=== PATIENT | female | born 1960 | race Caucasian/White ===

== ENCOUNTER 2016-07-06 16:49 | Emergency (ER) | payer MEDICAID ==
[~2016-07-06] VITALS: Ht 165.1 cm; Wt 65.9 kg
[2016-07-06] MEDS ORDERED: LIDOCAINE 1%, 20ML ONE (17:12)
[2016-07-06] MEDS ORDERED: LIDOCAINE 1%, 20ML SQ ONE (17:30)
[2016-07-06 18:23] VITALS: BP 139/74
== END 2016-07-06 18:26 | disposition home or self-care (01) ==
LOC: ED 18:12
DX: L03.011 Cellulitis of right finger (principal); M79.641 Pain in right hand
CPT/HCPCS: 26010; 99284

== ENCOUNTER 2016-07-11 05:48 | Emergency (ER) | payer MEDICAID ==
[~2016-07-11] VITALS: Ht 162.6 cm; Wt 66.8 kg
[2016-07-11 05:51] VITALS: BP 131/76
[2016-07-11] MEDS ORDERED: LIDOCAINE 1%, 20ML ONE ×2 (06:15→06:20)
[2016-07-11] MEDS ORDERED: BACITRACIN ZINC OINT 500U/GM, 0.9 GM ONE ×2 (07:25→07:26)
== END 2016-07-11 08:02 | disposition home or self-care (01) ==
LOC: ED 07:41
DX: L03.012 Cellulitis of left finger (principal)
CPT/HCPCS: 10060; 29130

== ENCOUNTER 2017-08-10 21:34 | Emergency (ER) | payer MEDICAID, OTHER ==
[~2017-08-10] VITALS: Ht 162.6 cm; Wt 73.0 kg
[2017-08-10 21:44] VITALS: BP 156/82
[2017-08-10] MEDS ORDERED: LIDOCAINE-MPF 1%, 5ML ONE (22:28)
[2017-08-10] MEDS ORDERED: BUPIVACAINE 0.25% ONE (22:29)
[2017-08-10] MEDS ORDERED: LIDOCAINE 1%, 10ML INFIL ONE (22:30)
[2017-08-10] MEDS ORDERED: LIDOCAINE 1%-EPI 1:100K, 20ML SQ ONE (22:30)
[2017-08-10] MEDS ORDERED: BUPIVACAINE 0.25% INFIL ONE (22:30)
[2017-08-11] MEDS ORDERED: CEPHALEXIN 500 MG CAPSULE PO ONE (00:30)
[2017-08-11] MEDS ORDERED: IBUPROFEN 800 MG TABLET PO ONE (00:30)
[2017-08-11] MEDS ORDERED: CEPHALEXIN 500 MG CAPSULE ONE (00:35)
[2017-08-11] MEDS ORDERED: IBUPROFEN 800 MG TABLET ONE (00:35)
[2017-08-11] MEDS ORDERED: BACITRACIN ZINC OINT 500U/GM, 0.9 GM ONE (00:45)
== END 2017-08-11 00:59 | disposition home or self-care (01) ==
LOC: ED 23:10
DX: S62.634B Displaced fracture of distal phalanx of right ring finger, initial encounter for open fracture (principal); W27.0XXA Contact with workbench tool, initial encounter; Y93.89 Activity, other specified; Y92.098 Other place in other non-institutional residence as the place of occurrence of the external cause; Y99.8 Other external cause status
CPT/HCPCS: 12044; 29130; 99284

== ENCOUNTER 2018-03-05 16:17 | Inpatient (IN) | payer MEDICAID, OTHER ==
[~2018-03-05] VITALS: Ht 162.6 cm; Wt 73.0 kg
[2018-03-05 17:12] LABS: BASOPHILS # (AUTO) 0.08 x10^3/uL (0-0.1); BASOPHILS % (AUTO) 1 % (0-1); EOSINOPHILS # (AUTO) 0.09 x10^3/uL (0-0.4); EOSINOPHILS % (AUTO) 1 % (1-7); LYMPHOCYTES # (AUTO) 1.44 x10^3/uL (1-3.4); LYMPHOCYTES % (AUTO) 12 % (22-44); MD NO; MEAN CORPUSCULAR HGB CONC 33.8 g/dL (32.4-35.8); MEAN CORPUSCULAR VOLUME 85.8 fL (80-100); MEAN PLATELET VOLUME 7.8 fL (7.4-10.4); MONOCYTES # (AUTO) 0.93 x10^3/uL (0.2-0.8); MONOCYTES % (AUTO) 8 % (2-9); NEUTROPHILS % (AUTO) 78 % (42-75); PLATELET COUNT 606 x10^3/uL (130-400); RED BLOOD COUNT 4.41 x10^6/uL (3.82-5.3); RED CELL DISTRIBUTION WIDTH 13.3 % (9.6-15.2)
[2018-03-05 17:21] LABS: INTERNATIONAL NORMALIZED RATIO 1.14 (0.93-1.1)
[2018-03-05 17:24] LABS: ALANINE AMINOTRANSFERASE 52 U/L (12-78); ALBUMIN 1.6 g/dL (3.4-5.0); ANION GAP 9 mmol/L (5-15); CALCIUM 8.3 mg/dL (8.5-10.1); CHLORIDE 97 mmol/L (98-107); CREATININE 0.69 mg/dL (0.55-1.02)
[2018-03-05 17:28] LABS: ALKALINE PHOSPHATASE 257 U/L (45-117); BILIRUBIN,TOTAL 0.4 mg/dL (0.2-1.0); TOTAL PROTEIN 7.9 g/dL (6.4-8.2); TROPONIN I < 0.015 ng/mL (0.000-0.045)
[2018-03-05] MEDS ORDERED: SODIUM CHLORIDE FLUSH 10ML SYR IVF ONE (18:00)
[2018-03-05] MEDS ORDERED: OMNIPAQUE 350 MG/ML, 75ML BOTTLE ONE (18:05)
[2018-03-05] MEDS ORDERED: LORazepam 2 MG/ML, 1ML IVPush ONE (18:30)
[2018-03-05] MEDS ORDERED: LORazepam 2 MG/ML, 1ML ONE (18:38)
[2018-03-05] MEDS ORDERED: LIDOCAINE-MPF 1%, 5ML ONE ×2 (18:40→18:58)
[2018-03-05] MEDS ORDERED: BISACODYL 10 MG SUPP PR PRN (19:00)
[2018-03-05] MEDS ORDERED: ONDANSETRON ODT 4 MG PO PRN (19:00)
[2018-03-05] MEDS ORDERED: POLYETHYLENE GLYCOL 17 GM PACKET PO PRN (19:00)
[2018-03-05] MEDS ORDERED: ALBUTEROL SULFATE 2.5 MG/3 ML NPPB PRN (20:00)
[2018-03-05 20:58] VITALS: BP 104/69
[2018-03-05] MEDS: SODIUM CHLORIDE FLUSH 10ML SYR IVF SCH (21:00)
[2018-03-06] VITALS (7 sets, daily range): BP systolic 89–109; BP diastolic 51–72
[2018-03-06 05:36] LABS: BASOPHILS # (AUTO) 0.02 x10^3/uL (0-0.1); BASOPHILS % (AUTO) 0 % (0-1); EOSINOPHILS # (AUTO) 0.05 x10^3/uL (0-0.4); EOSINOPHILS % (AUTO) 1 % (1-7); LYMPHOCYTES # (AUTO) 0.96 x10^3/uL (1-3.4); LYMPHOCYTES % (AUTO) 9 % (22-44); MD NO; MEAN CORPUSCULAR HEMOGLOBIN 28.7 pg (27.0-34.8); MEAN CORPUSCULAR HGB CONC 33.3 g/dL (32.4-35.8); MEAN CORPUSCULAR VOLUME 86.3 fL (80-100); MEAN PLATELET VOLUME 8.3 fL (7.4-10.4); MONOCYTES # (AUTO) 0.68 x10^3/uL (0.2-0.8); MONOCYTES % (AUTO) 6 % (2-9); NEUTROPHILS # (AUTO) 8.86 x10^3/uL (1.8-6.8); NEUTROPHILS % (AUTO) 84 % (42-75); PLATELET COUNT 561 x10^3/uL (130-400); RED BLOOD COUNT 4.18 x10^6/uL (3.82-5.3); RED CELL DISTRIBUTION WIDTH 13.7 % (9.6-15.2)
[2018-03-06 05:53] LABS: CHLORIDE 100 mmol/L (98-107)
[2018-03-06 06:07] LABS: ALANINE AMINOTRANSFERASE 45 U/L (12-78); ALBUMIN 1.5 g/dL (3.4-5.0); ALKALINE PHOSPHATASE 237 U/L (45-117); ANION GAP 9 mmol/L (5-15); BILIRUBIN,TOTAL 0.4 mg/dL (0.2-1.0); CREATININE 0.67 mg/dL (0.55-1.02); TOTAL PROTEIN 7.2 g/dL (6.4-8.2)
[2018-03-06] MEDS: SODIUM CHLORIDE FLUSH 10ML SYR IVF SCH ×2 (07:45→21:31)
[2018-03-06] MEDS: SENNA/DOCUSATE TABLET PO SCH (07:45)
[2018-03-06] MEDS ORDERED: FENTANYL PF 100 MCG/2ML ONE (08:55)
[2018-03-06] MEDS ORDERED: NALOXONE 1 MG/ML, 2ML ONE (08:56)
[2018-03-06] MEDS ORDERED: MIDAZOLAM 1 MG/ML, 5ML ONE ×2 (08:56)
[2018-03-06] MEDS ORDERED: FLUMAZENIL 0.1 MG/1 ML, 5ML ONE (08:56)
[2018-03-06] MEDS ORDERED: LIDOCAINE-MPF 1%, 5ML ONE (08:57)
[2018-03-06] MEDS ORDERED: OMNIPAQUE 350 MG/ML, 100ML BOTTLE ONE (09:30)
[2018-03-06 14:22] LABS: AMPHETAMINE SCREEN, URINE Positive (Negative); BARBITURATE SCREEN, URINE Negative (Negative); BENZODIAZEPINE SCREEN, URINE Positive (Negative); CANNABINOID SCREEN, URINE Negative (Negative); COCAINE SCREEN, URINE Negative (Negative); METHADONE SCREEN, URINE Negative (Negative); OPIATE SCREEN, URINE Positive (Negative)
[2018-03-06] MEDS: ACETAMINOPHEN 325 MG TABLET PO PRN (19:02)
[2018-03-07 01:44] VITALS: BP 104/59
[2018-03-07] MEDS: ACETAMINOPHEN 325 MG TABLET PO PRN ×4 (03:13→20:33)
[2018-03-07 08:38] VITALS: BP 87/54
[2018-03-07] MEDS: SENNA/DOCUSATE TABLET PO SCH (09:00)
[2018-03-07] MEDS: SODIUM CHLORIDE FLUSH 10ML SYR IVF SCH ×2 (09:31→20:51)
[2018-03-07] MEDS ORDERED: GADOBUTROL 7.5 MMOL/7.5 ML PFS ONE (13:59)
[2018-03-07 20:29] VITALS: BP 89/58
[2018-03-07] MEDS: LORazepam 1MG TABLET PO PRN (21:43)
[2018-03-07 21:47] VITALS: BP 93/59
[2018-03-08 02:52] VITALS: BP 98/65
[2018-03-08] MEDS: ACETAMINOPHEN 325 MG TABLET PO PRN ×4 (02:57→21:29)
[2018-03-08] MEDS: SODIUM CHLORIDE FLUSH 10ML SYR IVF SCH ×2 (08:54→21:00)
[2018-03-08] MEDS: SENNA/DOCUSATE TABLET PO SCH (08:54)
[2018-03-08 08:55] VITALS: BP 97/61
[2018-03-08] MEDS: LORazepam 1MG TABLET PO PRN (12:24)
[2018-03-08 13:12] VITALS: BP 97/63
[2018-03-08] MEDS: NICOTINE 7 MG/24 HR PATCH.TD24 TD SCH (15:26)
[2018-03-08 20:53] VITALS: BP 97/63
[2018-03-09 03:22] VITALS: BP 101/68
[2018-03-09 07:59] VITALS: BP 93/58
[2018-03-09] MEDS ORDERED: VENL37.52 PO (08:55)
[2018-03-09] MEDS ORDERED: VENLAFAXINE XR 37.5MG CAP.ER.24H PO SCH (09:00)
[2018-03-09] MEDS: SENNA/DOCUSATE TABLET PO SCH (09:00)
[2018-03-09] MEDS: ACETAMINOPHEN 325 MG TABLET PO PRN (10:06)
[2018-03-09] MEDS: SODIUM CHLORIDE FLUSH 10ML SYR IVF SCH (10:08)
[2018-03-09 12:03] VITALS: BP 94/58
[2018-03-09] MEDS: NICOTINE 7 MG/24 HR PATCH.TD24 TD SCH (13:46)
== END 2018-03-09 13:52 | disposition home or self-care (01) | DRG 180 ==
LOC: ED 17:04 → EDIP 18:38 → 3NW 19:32
PROVIDERS: ADMIT Internal Medicine; ATTEND Internal Medicine
PROC: 0W9B3ZZ Drainage of Left Pleural Cavity, Percutaneous Approach (ICD-10-PCS; principal; 2018-03-05)
PROC: 0BBJ3ZX Excision of Left Lower Lung Lobe, Percutaneous Approach, Diagnostic (ICD-10-PCS; 2018-03-06)
DX: C34.92 Malignant neoplasm of unspecified part of left bronchus or lung (principal); E43 Unspecified severe protein-calorie malnutrition; J18.9 Pneumonia, unspecified organism; C78.2 Secondary malignant neoplasm of pleura; E87.1 Hypo-osmolality and hyponatremia; F17.210 Nicotine dependence, cigarettes, uncomplicated; F32.9 Major depressive disorder, single episode, unspecified; I73.00 Raynaud's syndrome without gangrene; Z66 Do not resuscitate; Z80.1 Family history of malignant neoplasm of trachea, bronchus and lung; Z80.7 Family history of other malignant neoplasms of lymphoid, hematopoietic and related tissues; Z68.27 Body mass index [BMI] 27.0-27.9, adult
CPT/HCPCS: 32405; 32555; 36415; 70450; 70553; 71045; 71046; 71260; 74177; 77012; 80053; 80307; 82945; 83615; 83880; 84157; 84484; 85025; 85610; 87070; 87205; 88112; 88305; 89051; 90656; 93005; 96374; 99156; 99157; 99285; A9585; G0378; J2250; J3010; Q9967; J2060; J2310

== ENCOUNTER → 2018-03-17 | Outpatient (CLI) | payer MEDICAID ==
[~2018-03-17] MED LIST: VENL37.52 PO
== END | disposition home or self-care (01) ==
LOC: PETCFH 08:44
PROVIDERS: ATTEND Specialist
DX: C78.2 Secondary malignant neoplasm of pleura (principal); C79.72 Secondary malignant neoplasm of left adrenal gland; R59.1 Generalized enlarged lymph nodes; J90 Pleural effusion, not elsewhere classified; C34.10 Malignant neoplasm of upper lobe, unspecified bronchus or lung
CPT/HCPCS: 78815; A9552

== ENCOUNTER 2018-03-23 05:05 | Inpatient (IN) | payer MEDICAID ==
[~2018-03-23] VITALS: Ht 162.6 cm; Wt 70.6 kg
[2018-03-23] MEDS ORDERED: ONDANSETRON 2MG/ML, 2ML ONE (05:53)
[2018-03-23] MEDS ORDERED: FAMOTIDINE 20 MG/2 ML ONE (05:54)
[2018-03-23] MEDS ORDERED: MORPHINE SULFATE 4 MG/ML, 1ML ONE ×2 (05:54→07:54)
[2018-03-23] MEDS ORDERED: FAMOTIDINE 20 MG/2 ML IVPush ONE (06:00)
[2018-03-23] MEDS ORDERED: ONDANSETRON 2MG/ML, 2ML IVPush ONE (06:00)
[2018-03-23] MEDS ORDERED: MORPHINE SULFATE 4 MG/ML, 1ML IVPush PRN (06:00)
[2018-03-23] MEDS ORDERED: SODIUM CHLORIDE FLUSH 10ML SYR IVF ONE (06:00)
--- NOTE | 2018-03-23 06:09 | NUR ---
PT HERE FOR ABD PAIN AND SOB. VSS. PT MEDICATED FOR PAIN AND LABS SENT TO LAB. PT FEELING BETTER. CALL LIGHT IN REACH
[2018-03-23 06:18] LABS: INTERNATIONAL NORMALIZED RATIO 1.11 (0.93-1.1); PROTHROMBIN TIME 11.7 Seconds (9.6-11.5)
[2018-03-23 06:19] LABS: ALANINE AMINOTRANSFERASE 16 U/L (12-78); ALBUMIN 1.6 g/dL (3.4-5.0); ANION GAP 8 mmol/L (5-15); CALCIUM 8.5 mg/dL (8.5-10.1); CHLORIDE 98 mmol/L (98-107); CREATININE 0.74 mg/dL (0.55-1.02)
[2018-03-23 06:21] LABS: ALKALINE PHOSPHATASE 169 U/L (45-117); BILIRUBIN,TOTAL 0.3 mg/dL (0.2-1.0); TOTAL PROTEIN 7.5 g/dL (6.4-8.2)
[2018-03-23 06:49] LABS: BASOPHILS % (AUTO) 0 % (0-1); EOSINOPHILS # (AUTO) 0.04 x10^3/uL (0-0.4); EOSINOPHILS % (AUTO) 0 % (1-7); LYMPHOCYTES % (AUTO) 7 % (22-44); MD NO; MEAN CORPUSCULAR HEMOGLOBIN 28.4 pg (27.0-34.8); MEAN CORPUSCULAR HGB CONC 33.4 g/dL (32.4-35.8); MEAN PLATELET VOLUME 7.8 fL (7.4-10.4); MONOCYTES # (AUTO) 0.69 x10^3/uL (0.2-0.8); MONOCYTES % (AUTO) 6 % (2-9); NEUTROPHILS # (AUTO) 9.49 x10^3/uL (1.8-6.8); NEUTROPHILS % (AUTO) 86 % (42-75); PLATELET COUNT 485 x10^3/uL (130-400); RED BLOOD COUNT 4.25 x10^6/uL (3.82-5.3); RED CELL DISTRIBUTION WIDTH 14.5 % (9.6-15.2)
--- NOTE | 2018-03-23 06:49 | NUR ---
REC REPORT PT RESTING NADN
[2018-03-23] MEDS ORDERED: LIDOCAINE-MPF 1%, 5ML ONE (08:05)
--- NOTE | 2018-03-23 08:08 | NUR ---
second dose of ms given at [id number] computer not accepting chart of this dose given
--- NOTE | 2018-03-23 08:32 | NUR ---
PT TO IR AT THIS TIME
[2018-03-23] MEDS ORDERED: OMNIPAQUE 350 MG/ML, 75ML BOTTLE ONE (10:47)
[2018-03-23] MEDS ORDERED: LABETALOL 5MG/ML, 20ML IVPush PRN (12:00)
[2018-03-23] MEDS ORDERED: ACETAMINOPHEN 325 MG TABLET PO PRN (12:00)
[2018-03-23] MEDS ORDERED: morphine SULFATE 10 MG/ML, 1ML IVPush PRN (12:00)
[2018-03-23] MEDS ORDERED: ONDANSETRON 2MG/ML, 2ML IVPush PRN (12:00)
[2018-03-23] MEDS: HYDROcodone/APAP 5/325 TABLET PO PRN ×2 (15:11→19:55)
[2018-03-23 15:42] VITALS: BP 108/73
[2018-03-23 19:09] VITALS: BP 103/70
[2018-03-24] VITALS (9 sets, daily range): BP systolic 74–111; BP diastolic 40–77
[2018-03-24] MEDS: HYDROcodone/APAP 5/325 TABLET PO PRN ×4 (02:34→17:50)
[2018-03-24 04:42] LABS: BASOPHILS # (AUTO) 0.01 x10^3/uL (0-0.1); BASOPHILS % (AUTO) 0 % (0-1); EOSINOPHILS # (AUTO) 0.25 x10^3/uL (0-0.4); EOSINOPHILS % (AUTO) 2 % (1-7); LYMPHOCYTES # (AUTO) 0.78 x10^3/uL (1-3.4); LYMPHOCYTES % (AUTO) 7 % (22-44); MD NO; MEAN CORPUSCULAR HEMOGLOBIN 28.3 pg (27.0-34.8); MEAN CORPUSCULAR HGB CONC 33.3 g/dL (32.4-35.8); MEAN CORPUSCULAR VOLUME 84.9 fL (80-100); MEAN PLATELET VOLUME 7.6 fL (7.4-10.4); MONOCYTES # (AUTO) 0.74 x10^3/uL (0.2-0.8); MONOCYTES % (AUTO) 7 % (2-9); NEUTROPHILS # (AUTO) 9.39 x10^3/uL (1.8-6.8); NEUTROPHILS % (AUTO) 84 % (42-75); PLATELET COUNT 443 x10^3/uL (130-400); RED BLOOD COUNT 4.18 x10^6/uL (3.82-5.3); RED CELL DISTRIBUTION WIDTH 14.4 % (9.6-15.2)
[2018-03-24 04:45] LABS: ALBUMIN 1.6 g/dL (3.4-5.0); ANION GAP 5 mmol/L (5-15); CALCIUM 8.4 mg/dL (8.5-10.1); CHLORIDE 100 mmol/L (98-107)
[2018-03-24 04:49] LABS: ALANINE AMINOTRANSFERASE 13 U/L (12-78); ALKALINE PHOSPHATASE 167 U/L (45-117); BILIRUBIN,TOTAL 0.3 mg/dL (0.2-1.0); CREATININE 0.56 mg/dL (0.55-1.02); TOTAL PROTEIN 7.6 g/dL (6.4-8.2)
[2018-03-24] MEDS: VENLAFAXINE 75 MG CAP ER PO SCH (08:33)
[2018-03-24] MEDS ORDERED: AMOXICILLIN/CLAV 875-125MG TABLET PO SCH (09:00)
[2018-03-24] MEDS ORDERED: BUPIVACAINE/PF-EPI 0.5% 1:200K ONE (12:22)
[2018-03-24] MEDS ORDERED: ONDANSETRON ODT 8 MG PO ONE (12:30)
[2018-03-24] MEDS ORDERED: ACETAMINOPHEN 500 MG TABLET PO ONE (12:30)
[2018-03-24] MEDS ORDERED: GABAPENTIN 300 MG CAPSULE PO ONE (12:30)
[2018-03-24] MEDS ORDERED: MIDAZOLAM 1 MG/ML, 2ML ONE (12:36)
[2018-03-24] MEDS ORDERED: FENTANYL PF 250 MCG/5ML ONE (12:36)
[2018-03-24] MEDS ORDERED: hydrALAzine 20 MG/ML, 1ML IV PRN (13:30)
[2018-03-24] MEDS ORDERED: METOPROLOL 1 MG/ML, 5ML IV PRN (13:30)
[2018-03-24] MEDS ORDERED: ONDANSETRON 2MG/ML, 2ML IV PRN (13:30)
[2018-03-24] MEDS ORDERED: ALBUTEROL/IPRATROPIUM 2.5MG/0.5MG, 3 ML NPPB PRN (13:30)
[2018-03-24] MEDS ORDERED: MIDAZOLAM 1 MG/ML, 2ML IV PRN (13:30)
[2018-03-24] MEDS ORDERED: MEPERIDINE/PF 25MG/0.5ML IVPush PRN (13:30)
[2018-03-24] MEDS ORDERED: HYDROmorphone 2 MG/ML, 1ML IVPush PRN (13:30)
[2018-03-24] MEDS ORDERED: PROMETHAZINE 25 MG/ML, 1ML IV PRN (13:30)
[2018-03-24] MEDS ORDERED: FENTANYL PF 100 MCG/2ML IV PRN (13:30)
[2018-03-24] MEDS ORDERED: OXYcodone 5 MG/5 ML ORAL.SOL UDC PO PRN (13:30)
[2018-03-24] MEDS ORDERED: PROPOFOL 10 MG/ML, 20ML ONE (13:41)
[2018-03-24] MEDS ORDERED: DEXAMETHASONE 4 MG/ML, 1ML ONE (13:41)
[2018-03-24] MEDS ORDERED: ROCURONIUM 10 MG/ML,10ML ONE (13:41)
[2018-03-24] MEDS ORDERED: SUCCINYLCHOLINE 20 MG/ML, 10ML ONE (13:41)
[2018-03-24] MEDS ORDERED: DOXYCYCLINE 100 MG ONE (13:42)
[2018-03-24] MEDS ORDERED: LABETALOL 20 MG/4 ML ONE (15:31)
[2018-03-24] MEDS ORDERED: FENTANYL PF 100 MCG/2ML ONE (15:31)
[2018-03-24] MEDS ORDERED: OXYcodone 5 MG/5 ML ORAL.SOL UDC ONE (16:18)
[2018-03-24] MEDS ORDERED: SODIUM CHLORIDE 0.9%, 500ML IVBOLUS ONE (21:00)
[2018-03-24] MEDS ORDERED: SODIUM CHLORIDE 0.9% 1,000ML IVBOLUS ONE ×2 (22:00→22:30)
[2018-03-24] MEDS ORDERED: LABETALOL 5MG/ML, 20ML IVPush PRN (22:00)
[2018-03-24] MEDS ORDERED: VANCOMYCIN PER PHARMACY MC PRN (22:30)
[2018-03-24] MEDS ORDERED: PHARMACOKINETIC MONITORING MC PRN (22:30)
[2018-03-24 22:55] LABS: BASOPHILS # (AUTO) 0.01 x10^3/uL (0-0.1); BASOPHILS % (AUTO) 0 % (0-1); EOSINOPHILS # (AUTO) 0.19 x10^3/uL (0-0.4); EOSINOPHILS % (AUTO) 2 % (1-7); LYMPHOCYTES # (AUTO) 0.51 x10^3/uL (1-3.4); LYMPHOCYTES % (AUTO) 4 % (22-44); MD NO; MEAN CORPUSCULAR HEMOGLOBIN 28.3 pg (27.0-34.8); MEAN CORPUSCULAR HGB CONC 33.2 g/dL (32.4-35.8); MEAN CORPUSCULAR VOLUME 85.1 fL (80-100); MEAN PLATELET VOLUME 7.6 fL (7.4-10.4); MONOCYTES % (AUTO) 2 % (2-9); NEUTROPHILS # (AUTO) 11.78 x10^3/uL (1.8-6.8); NEUTROPHILS % (AUTO) 93 % (42-75); PLATELET COUNT 402 x10^3/uL (130-400); RED BLOOD COUNT 3.71 x10^6/uL (3.82-5.3); RED CELL DISTRIBUTION WIDTH 14.3 % (9.6-15.2)
[2018-03-24] MEDS ORDERED: VANCOMYCIN 1,400 MG in SODIUM CHLORIDE 0.9% 250 ML IV ONE (23:00)
[2018-03-24] MEDS ORDERED: SODIUM CHLORIDE 0.9% 1,000 ML IV SCH (23:00)
[2018-03-24 23:04] LABS: ALANINE AMINOTRANSFERASE 12 U/L (12-78); ALBUMIN 1.2 g/dL (3.4-5.0); ANION GAP 5 mmol/L (5-15); CALCIUM 6.9 mg/dL (8.5-10.1); CHLORIDE 109 mmol/L (98-107); CREATININE 0.56 mg/dL (0.55-1.02)
[2018-03-24] MEDS: PIPERACILLIN/TAZO/PMX 3.375GM 50 ML IV SCH (23:06)
[2018-03-24 23:07] LABS: ALKALINE PHOSPHATASE 140 U/L (45-117); BILIRUBIN,TOTAL 0.1 mg/dL (0.2-1.0); TOTAL PROTEIN 5.8 g/dL (6.4-8.2)
[2018-03-24] MEDS: SODIUM CHLORIDE 0.9% 1,000 ML IV SCH (23:57)
[2018-03-25] VITALS (7 sets, daily range): BP systolic 91–107; BP diastolic 50–67
[2018-03-25] MEDS: PIPERACILLIN/TAZO/PMX 3.375GM 50 ML IV SCH ×4 (04:15→22:30)
[2018-03-25] MEDS: VENLAFAXINE 75 MG CAP ER PO SCH (09:59)
[2018-03-25] MEDS: HYDROcodone/APAP 5/325 TABLET PO PRN ×4 (09:59→22:36)
[2018-03-25] MEDS: SODIUM CHLORIDE 0.9% 1,000 ML IV SCH ×2 (11:27→22:31)
[2018-03-25] MEDS: morphine SULFATE ORAL.CONC 20 MG/ML BC PRN (17:35)
[2018-03-26 01:20] VITALS: BP 103/71
[2018-03-26] MEDS: morphine SULFATE 10 MG/ML, 1ML IVPush PRN ×3 (01:54→18:57)
[2018-03-26] MEDS: PIPERACILLIN/TAZO/PMX 3.375GM 50 ML IV SCH (04:34)
[2018-03-26] MEDS: HYDROcodone/APAP 5/325 TABLET PO PRN ×4 (04:34→20:53)
[2018-03-26 05:02] LABS: BASOPHILS # (AUTO) 0.03 x10^3/uL (0-0.1); BASOPHILS % (AUTO) 0 % (0-1); EOSINOPHILS # (AUTO) 0.25 x10^3/uL (0-0.4); EOSINOPHILS % (AUTO) 3 % (1-7); LYMPHOCYTES # (AUTO) 1.01 x10^3/uL (1-3.4); LYMPHOCYTES % (AUTO) 11 % (22-44); MD NO; MEAN CORPUSCULAR HGB CONC 32.4 g/dL (32.4-35.8); MEAN CORPUSCULAR VOLUME 86.4 fL (80-100); MEAN PLATELET VOLUME 7.1 fL (7.4-10.4); MONOCYTES # (AUTO) 0.64 x10^3/uL (0.2-0.8); MONOCYTES % (AUTO) 7 % (2-9); NEUTROPHILS # (AUTO) 6.88 x10^3/uL (1.8-6.8); NEUTROPHILS % (AUTO) 78 % (42-75); PLATELET COUNT 491 x10^3/uL (130-400); RED BLOOD COUNT 3.74 x10^6/uL (3.82-5.3); RED CELL DISTRIBUTION WIDTH 14.2 % (9.6-15.2)
[2018-03-26] MEDS: SODIUM CHLORIDE 0.9% 1,000 ML IV SCH (05:40)
[2018-03-26] MEDS: VENLAFAXINE 75 MG CAP ER PO SCH (08:13)
[2018-03-26] MEDS: AMOXICILLIN/CLAV 875-125MG TABLET PO SCH ×2 (08:13→20:53)
[2018-03-26 09:50] VITALS: BP 108/73
[2018-03-26 15:57] VITALS: BP 95/60
[2018-03-26 18:54] VITALS: BP 98/66
[2018-03-26 20:31] VITALS: BP 107/58
[2018-03-26] MEDS ORDERED: SODIUM CHLORIDE 0.9% 1,000 ML IV SCH (23:30)
[2018-03-27 00:14] VITALS: BP 108/58
[2018-03-27] MEDS: HYDROcodone/APAP 5/325 TABLET PO PRN ×5 (02:46→21:36)
[2018-03-27 07:19] VITALS: BP 110/70
[2018-03-27] MEDS: VENLAFAXINE 75 MG CAP ER PO SCH (10:27)
[2018-03-27] MEDS: AMOXICILLIN/CLAV 875-125MG TABLET PO SCH ×2 (10:27→20:41)
[2018-03-27] MEDS: morphine SULFATE ORAL.CONC 20 MG/ML BC PRN (13:29)
[2018-03-27 13:44] VITALS: BP 114/76
[2018-03-27] MEDS: NYSTATIN 500,000 UNITS/5 ML UDC PO SCH ×2 (16:16→20:41)
[2018-03-27 19:01] VITALS: BP 109/56
[2018-03-28 01:18] VITALS: BP 108/69
[2018-03-28] MEDS: morphine SULFATE ORAL.CONC 20 MG/ML BC PRN ×5 (01:45→20:46)
[2018-03-28] MEDS: HYDROcodone/APAP 5/325 TABLET PO PRN ×5 (05:13→23:31)
[2018-03-28] MEDS: NYSTATIN 500,000 UNITS/5 ML UDC PO SCH ×4 (05:13→20:45)
[2018-03-28 07:15] VITALS: BP 105/61
[2018-03-28] MEDS: VENLAFAXINE 75 MG CAP ER PO SCH (09:31)
[2018-03-28] MEDS: AMOXICILLIN/CLAV 875-125MG TABLET PO SCH ×2 (09:31→20:45)
[2018-03-28 13:36] VITALS: BP_SYST 108; BP_SYST 138; BP_DIAS 63; BP_DIAS 75
[2018-03-28] MEDS ORDERED: FENTANYL 12 MCG PATCH TD SCH (14:30)
[2018-03-28 20:00] VITALS: BP 101/66
[2018-03-29 02:29] VITALS: BP 111/59
[2018-03-29] MEDS: morphine SULFATE ORAL.CONC 20 MG/ML BC PRN ×5 (04:13→22:48)
[2018-03-29] MEDS: HYDROcodone/APAP 5/325 TABLET PO PRN ×4 (06:20→20:40)
[2018-03-29] MEDS: NYSTATIN 500,000 UNITS/5 ML UDC PO SCH ×4 (06:20→20:40)
[2018-03-29 08:19] VITALS: BP 99/66
[2018-03-29] MEDS: AMOXICILLIN/CLAV 875-125MG TABLET PO SCH ×2 (08:44→20:40)
[2018-03-29] MEDS: VENLAFAXINE 75 MG CAP ER PO SCH (08:44)
[2018-03-29] MEDS ORDERED: MAGNESIUM CITRATE 300ML ORAL SOL ONE (09:47)
[2018-03-29] MEDS ORDERED: MAGNESIUM CITRATE 300ML ORAL SOL PO ONE (10:00)
[2018-03-29] MEDS ORDERED: ONDANSETRON ODT 4 MG PO PRN (12:30)
[2018-03-29] MEDS ORDERED: MAGNESIUM HYDROXIDE 8%, 30ML UDC PO PRN (14:30)
[2018-03-29 15:44] VITALS: BP_SYST 111; BP_SYST 124; BP_DIAS 73; BP_DIAS 79
[2018-03-29] MEDS ORDERED: KETOROLAC 30 MG/1 ML IVPush PRN (17:30)
[2018-03-29] MEDS: DOCUSATE 100 MG CAPSULE PO SCH (20:40)
[2018-03-29 20:56] VITALS: BP 109/73
[2018-03-30 02:05] VITALS: BP 106/68
[2018-03-30] MEDS: HYDROcodone/APAP 5/325 TABLET PO PRN ×3 (03:45→17:44)
[2018-03-30] MEDS: NYSTATIN 500,000 UNITS/5 ML UDC PO SCH ×4 (06:00→20:40)
[2018-03-30] MEDS: morphine SULFATE ORAL.CONC 20 MG/ML BC PRN ×4 (06:00→20:40)
[2018-03-30 08:15] VITALS: BP 96/59
[2018-03-30] MEDS: AMOXICILLIN/CLAV 875-125MG TABLET PO SCH (08:43)
[2018-03-30] MEDS: DOCUSATE 100 MG CAPSULE PO SCH ×2 (08:43→20:40)
[2018-03-30] MEDS: VENLAFAXINE 75 MG CAP ER PO SCH (08:43)
[2018-03-30 13:45] VITALS: BP 105/64
[2018-03-30] MEDS ORDERED: FENTANYL REMOVE PATCH NOTE XX SCH (17:00)
[2018-03-30] MEDS ORDERED: FENTANYL 25 MCG PATCH TD SCH (17:00)
[2018-03-30 20:18] VITALS: BP 94/61
[2018-03-30] MEDS ORDERED: MESALAMINE ENEMA 4 GM/60 ML ENEMA PR SCH (21:00)
[2018-03-31] MEDS: HYDROcodone/APAP 5/325 TABLET PO PRN ×5 (00:17→16:39)
[2018-03-31 02:18] VITALS: BP 98/65
[2018-03-31] MEDS: morphine SULFATE ORAL.CONC 20 MG/ML BC PRN ×4 (02:28→14:47)
[2018-03-31] MEDS: NYSTATIN 500,000 UNITS/5 ML UDC PO SCH ×3 (05:41→16:00)
[2018-03-31 06:37] VITALS: BP 109/71
[2018-03-31] MEDS: DOCUSATE 100 MG CAPSULE PO SCH (08:55)
[2018-03-31] MEDS: VENLAFAXINE 75 MG CAP ER PO SCH (08:55)
[2018-03-31] MEDS ORDERED: MAGNESIUM HYDROXIDE 8%, 30ML UDC PO SCH (09:00)
[2018-03-31] MEDS ORDERED: NYST1000 PO (11:07)
[2018-03-31] MEDS ORDERED: DOCU-131 PO (11:07)
[2018-03-31 15:21] VITALS: BP 98/62
== END 2018-03-31 18:45 | disposition hospice, home (50) | DRG 163 ==
LOC: ED 06:35 → EDIP 11:54 → 3NW 12:08
PROVIDERS: ADMIT Internal Medicine; ATTEND Internal Medicine
PROC: 0W9B3ZZ Drainage of Left Pleural Cavity, Percutaneous Approach (ICD-10-PCS; 2018-03-23)
PROC: 0BBL4ZX Excision of Left Lung, Percutaneous Endoscopic Approach, Diagnostic (ICD-10-PCS; 2018-03-24)
PROC: 03HY32Z Insertion of Monitoring Device into Upper Artery, Percutaneous Approach (ICD-10-PCS; 2018-03-24)
PROC: 4A133B1 Monitoring of Arterial Pressure, Peripheral, Percutaneous Approach (ICD-10-PCS; 2018-03-24)
PROC: 4A133J1 Monitoring of Arterial Pulse, Peripheral, Percutaneous Approach (ICD-10-PCS; 2018-03-24)
PROC: 3E0L4GC Introduction of Other Therapeutic Substance into Pleural Cavity, Percutaneous Endoscopic Approach (ICD-10-PCS; 2018-03-24)
PROC: 0WH Anatomical Regions, General, Insertion (ICD-10-PCS; 2018-03-24)
PROC: 0BCL4ZZ Extirpation of Matter from Left Lung, Percutaneous Endoscopic Approach (ICD-10-PCS; principal; 2018-03-24 13:30)
DX: C34.92 Malignant neoplasm of unspecified part of left bronchus or lung (principal); E43 Unspecified severe protein-calorie malnutrition; J96.01 Acute respiratory failure with hypoxia; C78.2 Secondary malignant neoplasm of pleura; E87.1 Hypo-osmolality and hyponatremia; J91.0 Malignant pleural effusion; D3A.8 Other benign neuroendocrine tumors; D63.8 Anemia in other chronic diseases classified elsewhere; F17.200 Nicotine dependence, unspecified, uncomplicated; I73.00 Raynaud's syndrome without gangrene; K59.00 Constipation, unspecified; F32.9 Major depressive disorder, single episode, unspecified; I95.9 Hypotension, unspecified; R59.9 Enlarged lymph nodes, unspecified; R93.89 Abnormal findings on diagnostic imaging of other specified body structures; Z51.5 Encounter for palliative care; Z66 Do not resuscitate; Z82.5 Family history of asthma and other chronic lower respiratory diseases; Z85.118 Personal history of other malignant neoplasm of bronchus and lung; Z68.26 Body mass index [BMI] 26.0-26.9, adult
CPT/HCPCS: 32555; 36415; 82042; 82945; 83986; J3490; 71045; 71260; 80053; 82533; 83605; 83615; 83690; 85025; 85610; 85730; 87040; 87070; 87075; 87205; 88112; 88305; 88341; 88342; 88360; 89051; 93005; C1729; G0378; J1100; J2250; J2405; J2543; J2704; J3010; J3370; Q0162; Q9967; J0330; J2270; J7030; J7040; J7050